=== PATIENT | male | born 1990 | race Two or more races ===

== ENCOUNTER 2021-12-08 20:23 | Emergency (ER) | payer SELFPAY ==
[~2021-12-08] VITALS: Ht 175.3 cm; Wt 95.3 kg
[2021-12-08 20:25] VITALS: BP 145/85
== END 2021-12-08 23:46 | disposition left against medical advice (07) ==
LOC: ER 20:23
DX: R07.89 Other chest pain (principal); R11.2 Nausea with vomiting, unspecified; Z53.21 Procedure and treatment not carried out due to patient leaving prior to being seen by health care provider
CPT/HCPCS: 93005

== ENCOUNTER 2021-12-11 02:31 | Emergency (ER) | payer SELFPAY ==
[~2021-12-11] VITALS: Ht 175.3 cm; Wt 90.7 kg
[2021-12-11] MEDS ORDERED: ALUM & MAG HYDROX-SIMETH LIQ(MAALOX) 30 ML PO ONE (03:00)
[2021-12-11] MEDS ORDERED: LIDOCAINE VISCOUS 2% 15ML UD PO ONE (03:00)
[2021-12-11] MEDS ORDERED: DONNATAL 5ml ORAL Elix (BELLADONNA ALK-PHENOBARB) PO ONE (03:00)
[2021-12-11 03:01] VITALS: BP 160/100
[2021-12-11 03:24] LABS: Basophils # (auto) 0.3 10 ^3/uL (0-0.2); Basophils % (auto) 2.9 % (0.0-2.0); Eosinophils # (auto) 0.1 10 ^3/uL (0-0.8); Hematocrit 43.1 % (41.0-53.0); Hemoglobin 14.9 g/dL (13.5-17.5); Lymphocytes # (auto) 1.3 10 ^3/uL (0.4-5.4); Lymphocytes % (auto) 14.5 % (10.0-50.0); Mean Corpuscular Hemoglobin 28.4 pg (28.0-32.0); Mean Corpuscular Hgb Conc. 34.5 g/dL (32.0-36.0); Mean Corpuscular Volume 82.5 fL (80.0-100.0); Monocytes # (auto) 0.7 10 ^3/uL (0-1.3); Neutrophils # (auto) 6.7 10 ^3/uL (1.6-8.6); Neutrophils % (auto) 73.6 % (37.0-80.0); Red Blood Cells 5.23 10^6/uL (4.5-5.90); Red Cell Distribution Width 12.8 % (11.8-14.3); White Blood Cell 9.1 10^3/uL (4.4-10.8)
[2021-12-11 03:45] LABS: Albumin 3.5 g/dL (3.4-5.0); BUN/Creatinine Ratio 9.3; Calcium 8.6 mg/dL (8.5-10.1)
[2021-12-11 03:47] LABS: Bilirubin, Total 0.4 mg/dL (0.2-1.0)
== END 2021-12-11 04:16 | disposition home or self-care (01) ==
LOC: ER 02:31 → EDBD 02:31 → ER 04:16
DX: K92.2 Gastrointestinal hemorrhage, unspecified (principal)
CPT/HCPCS: 36415; 80053; 85025